=== PATIENT | female | born 1990 | race Caucasian/White ===

== ENCOUNTER 2016-09-25 17:53 | Emergency (ER) | payer SELFPAY ==
[~2016-09-25] VITALS: Ht 165.1 cm; Wt 88.6 kg
[~2016-09-25 17:53] MED LIST: ADDERALL20 MG PO; CEPHALEXIN500 MG PO; CIPRO500 MG OR; CIPROFLOXACN500 MG PO; CLARITIN10 M1 PO; FIORICET PO; HYDROXYZ HCL25 MG PO; LORTAB 1010 MG PO; NO; NO HOME MEDS; ONDANSETRON4 MG OR; PREVACID30 M2 PO; PYRIDIUM200 MG OR; PYRIDIUM200 MG PO; ROBITUSSIN AC10 ML PO; ROBITUSSIN200 MG/10 PO; ULTRAM50 M1 PO; UNKNOWN MEDICATION; VISTARIL 50MG C50 M1 PO; ZITHROMAX250 MG PO; ZOFRAN ODT4 MG PO; ZOFRAN ODT8 MG PO; ZOFRAN4 M1 OR; [UNRECOGNIZED DRUG - REMARK]; [UNRECOGNIZED DRUG - REMARK]
[2016-09-25 18:29] VITALS: BP 128/82
== END 2016-09-25 19:53 | disposition left against medical advice (07) | DRG 951 ==
LOC: ED 17:53 → LWOBS 19:53 → ED 19:53
DX: Z91.19 Patient's noncompliance with other medical treatment and regimen (principal)

== ENCOUNTER 2016-10-09 01:21 | Emergency (ER) | payer SELFPAY ==
[~2016-10-09] VITALS: Ht 165.1 cm; Wt 88.4 kg
[2016-10-09 02:45] VITALS: BP 129/82
[2016-10-10] MEDS ORDERED: METRONIDAZOL500 MG PO (07:36)
[2016-10-10] MEDS ORDERED: CIPROFLOXACN500 MG PO (07:36)
== END 2016-10-09 02:45 | disposition left against medical advice (07) | DRG 880 ==
LOC: ED 01:21
DX: F41.9 Anxiety disorder, unspecified (principal); Z91.19 Patient's noncompliance with other medical treatment and regimen; F31.9 Bipolar disorder, unspecified; F90.9 Attention-deficit hyperactivity disorder, unspecified type; K21.9 Gastro-esophageal reflux disease without esophagitis; F17.210 Nicotine dependence, cigarettes, uncomplicated
CPT/HCPCS: J2060

== ENCOUNTER 2016-10-10 03:03 | Emergency (ER) | payer SELFPAY ==
[~2016-10-10] VITALS: Ht 165.1 cm; Wt 85.5 kg
[2016-10-10 05:57] LABS: HEMATOCRIT 45.2 % (37.0-47.0); HEMOGLOBIN 15.4 g/dl (12.0-16.0); IMMATURE GRANULOCYTES 1.7 % (0.0-1.0); MEAN CELL VOLUME 92.4 fL CALC (80.0-100.0); MEAN CORPUSCULAR HGB 31.5 pG CALC (26.0-32.0); MEAN CORPUSCULAR HGB CONC 34.1 g/L CALC (32.0-36.0); NEUT# 13.82 thou/uL (2.00-7.15); RED BLOOD COUNT 4.89 mill/uL (4.20-5.60); RED CELL DISTRI WIDTH 12.7 % (11.5-15.5)
[2016-10-10 06:05] LABS: ALBUMIN 5.6 g/dL (3.2-5.0); ALKALINE PHOSPHATASE 87 u/l (38-126); AMYLASE 61 u/l (30-110); ANION GAP 22 (6-22 (CALC)); BILIRUBIN, TOTAL 1.2 mg/dL (0.0-1.4); BUN 14 mg/dL (7-17); BUN/CREATININE RATIO 17 (12-20 (CALC)); CALCIUM 11.1 mg/dL (8.4-10.2); CARBON DIOXIDE 20 mmol/l (22-30); CHLORIDE 105 mmol/l (95-108); CREATININE 0.8 mg/dL (0.5-1.0); GFR > 60 ML/MIN (>=60 (CALC)); GFR FOR AFR.AMER. > 60 ML/MIN (>=60 (CALC)); GLUCOSE 101 mg/dL (65-105); LIPASE 62 u/l (23-300); SGOT/AST 22 u/l (14-36); SGPT/ALT 29 u/l (9-52); SODIUM 143 mmol/l (137-146); TOTAL PROTEIN 9.4 g/dL (6.3-8.2)
[2016-10-10] MEDS ORDERED: METRONIDAZOL500 MG PO (07:36)
[2016-10-10] MEDS ORDERED: CIPROFLOXACN500 MG PO (07:36)
[2016-10-10 07:50] VITALS: BP 115/68
== END 2016-10-10 08:07 | disposition home or self-care (01) | DRG 392 ==
LOC: ED 03:03
PROVIDERS: Emergency Medicine
DX: R19.7 Diarrhea, unspecified (principal); F31.9 Bipolar disorder, unspecified; R11.10 Vomiting, unspecified; F90.9 Attention-deficit hyperactivity disorder, unspecified type; F41.9 Anxiety disorder, unspecified; K21.9 Gastro-esophageal reflux disease without esophagitis; F17.210 Nicotine dependence, cigarettes, uncomplicated
CPT/HCPCS: J2060; S0164

== ENCOUNTER 2016-12-17 16:57 | Emergency (ER) | payer SELFPAY ==
[~2016-12-17] VITALS: Ht 165.1 cm; Wt 86.4 kg
[~2016-12-17 16:57] MED LIST changes: +METRONIDAZOL500 MG PO
[2016-12-17 17:46] LABS: URINE BILIRUBIN - DIPSTICK NEGATIVE (NEGATIVE); URINE BLOOD DIPSTICK LARGE (NEGATIVE); URINE CLARITY CLEAR; URINE COLOR YELLOW; URINE GLUCOSE - DIPSTICK NEGATIVE (NEGATIVE); URINE KETONE NEGATIVE (NEGATIVE); URINE LEUK ESTERASE TRACE (NEGATIVE); URINE NITRITE - DIPSTICK NEGATIVE (Negative); URINE PROTEIN - DIPSTICK 30 mg/dL (NEG-TRACE); URINE SPECIFIC GRAVITY 1.015; URINE UROBILINOGEN - DIPSTICK 0.2 E.U./dL (0.2)
[2016-12-17 17:47] LABS: HEMATOCRIT 42.8 % (37.0-47.0); HEMOGLOBIN 14.4 g/dl (12.0-16.0); IMMATURE GRANULOCYTES 0.3 % (0.0-1.0); MEAN CELL VOLUME 94.5 fL CALC (80.0-100.0); MEAN CORPUSCULAR HGB 31.8 pG CALC (26.0-32.0); MEAN CORPUSCULAR HGB CONC 33.6 g/L CALC (32.0-36.0); NEUT# 10.69 thou/uL (2.00-7.15); RED BLOOD COUNT 4.53 mill/uL (4.20-5.60); RED CELL DISTRI WIDTH 12.9 % (11.5-15.5)
[2016-12-17 18:03] LABS: URINE MUCUS MODERATE hpf (NONE-FEW); URINE RBC TNTC RBC/hpf (0-5); URINE SQUAMOUS EPITHELIAL CELL FEW EPI/hpf (0-FEW)
[2016-12-17 18:04] LABS: ALBUMIN 4.5 g/dL (3.2-5.0); ALKALINE PHOSPHATASE 83 u/l (38-126); ANION GAP 17 (6-22 (CALC)); BILIRUBIN, TOTAL 1.1 mg/dL (0.0-1.4); BUN 10 mg/dL (7-17); BUN/CREATININE RATIO 17 (12-20 (CALC)); CALCIUM 9.6 mg/dL (8.4-10.2); CARBON DIOXIDE 17 mmol/l (22-30); CHLORIDE 113 mmol/l (95-108); CREATININE 0.6 mg/dL (0.5-1.0); GFR > 60 ML/MIN (>=60 (CALC)); GFR FOR AFR.AMER. > 60 ML/MIN (>=60 (CALC)); GLUCOSE 98 mg/dL (65-105); LIPASE 218 u/l (23-300); POTASSIUM 4.3 mmol/l (3.5-5.1); SGOT/AST 18 u/l (14-36); SGPT/ALT 23 u/l (9-52); SODIUM 143 mmol/l (137-146); TOTAL PROTEIN 7.4 g/dL (6.3-8.2)
[2016-12-17 19:00] VITALS: BP 124/80
== END 2016-12-17 19:01 | disposition left against medical advice (07) | DRG 392 ==
LOC: ED 16:57
PROVIDERS: Family Medicine
DX: R10.84 Generalized abdominal pain (principal); R11.10 Vomiting, unspecified; R19.7 Diarrhea, unspecified; Z91.19 Patient's noncompliance with other medical treatment and regimen

== ENCOUNTER 2017-04-21 03:18 | Emergency (ER) | payer SELFPAY ==
[~2017-04-21] VITALS: Ht 165.1 cm; Wt 77.2 kg
[2017-04-21] MEDS ORDERED: PSYCH MED (03:34)
[2017-04-21 04:17] LABS: BARBITURATES NEGATIVE (NEGATIVE); COCAINE NEGATIVE (NEGATIVE); METHADONE NEGATIVE (NEGATIVE); OXCYCODONE NEGATIVE (NEGATIVE); TETRAHYDROCANNABIONOL POSITIVE (NEGATIVE); TRICYLIC ANTIDEPRESSANTS NEGATIVE (NEGATIVE)
[2017-04-21 05:09] VITALS: BP 136/84
== END 2017-04-21 05:50 | disposition left against medical advice (07) | DRG 552 ==
LOC: ED 03:18
PROVIDERS: Emergency Medicine
DX: M54.2 Cervicalgia (principal); F17.210 Nicotine dependence, cigarettes, uncomplicated; F31.9 Bipolar disorder, unspecified; F41.9 Anxiety disorder, unspecified; Z91.19 Patient's noncompliance with other medical treatment and regimen

== ENCOUNTER 2018-01-31 12:24 | Emergency (ER) | payer SELFPAY ==
[~2018-01-31] VITALS: Ht 165.1 cm; Wt 75.2 kg
[~2018-01-31 12:24] MED LIST changes: +PSYCH MED
[2018-01-31] MEDS ORDERED: SERTRALINE50 MG PO (12:46)
[2018-01-31] MEDS ORDERED: HYDROXYZ HCL25 MG PO (12:46)
[2018-01-31 13:20] LABS: HEMATOCRIT 40.7 % (37.0-47.0); HEMOGLOBIN 13.2 g/dl (12.0-16.0); IMMATURE GRANULOCYTES 0.4 % (0.0-5.0); MEAN CELL VOLUME 95.3 fL CALC (80.0-100.0); MEAN CORPUSCULAR HGB 30.9 pG CALC (26.0-32.0); MEAN CORPUSCULAR HGB CONC 32.4 g/L CALC (32.0-36.0); NEUT# 4.77 thou/uL (2.00-7.15); RED BLOOD COUNT 4.27 mill/uL (4.20-5.60); RED CELL DISTRI WIDTH 12.5 % (11.5-15.5)
[2018-01-31 13:25] LABS: URINE BILIRUBIN - DIPSTICK NEGATIVE (NEGATIVE); URINE BLOOD DIPSTICK NEGATIVE (NEGATIVE); URINE COLOR YELLOW; URINE GLUCOSE - DIPSTICK NEGATIVE (NEGATIVE); URINE KETONE NEGATIVE (NEGATIVE); URINE PH 6.5 (4.5-8.0); URINE PROTEIN - DIPSTICK NEGATIVE (NEG-TRACE); URINE SPECIFIC GRAVITY 1.025; URINE UROBILINOGEN - DIPSTICK 0.2 E.U./dL (0.2)
[2018-01-31 13:26] LABS: URINE LEUK ESTERASE SMALL (NEGATIVE); URINE NITRITE - DIPSTICK POSITIVE (Negative)
[2018-01-31 13:28] LABS: COCAINE NEGATIVE (NEGATIVE)
[2018-01-31 13:29] LABS: BARBITURATES NEGATIVE (NEGATIVE); METHADONE NEGATIVE (NEGATIVE); OXCYCODONE NEGATIVE (NEGATIVE); TETRAHYDROCANNABIONOL POSITIVE (NEGATIVE); TRICYLIC ANTIDEPRESSANTS NEGATIVE (NEGATIVE)
[2018-01-31 13:32] LABS: URINE BACTERIA MANY hpf; URINE SQUAMOUS EPITHELIAL CELL FEW EPI/hpf (0-FEW)
[2018-01-31 13:33] LABS: ALBUMIN 4.2 g/dL (3.2-5.0); ALKALINE PHOSPHATASE 81 u/l (38-126); ANION GAP 14 (6-22 (CALC)); BILIRUBIN, TOTAL 0.2 mg/dL (0.0-1.4); BUN 10 mg/dL (7-17); BUN/CREATININE RATIO 15 (12-20 (CALC)); CARBON DIOXIDE 25 mmol/l (22-30); CHLORIDE 104 mmol/l (95-108); CREATININE 0.7 mg/dL (0.5-1.0); GFR > 60 ML/MIN (>=60 (CALC)); GFR FOR AFR.AMER. > 60 ML/MIN (>=60 (CALC)); POTASSIUM 3.7 mmol/l (3.5-5.1); SGOT/AST 15 u/l (14-36); SODIUM 139 mmol/l (137-146); TOTAL PROTEIN 7.2 g/dL (6.3-8.2)
[2018-01-31] MEDS ORDERED: KEFLEX500 M1 PO (13:49)
[2018-01-31] MEDS ORDERED: ONDANSETRON4 MG PO (13:49)
[2018-01-31 13:55] VITALS: BP 121/60
== END 2018-01-31 13:55 | disposition home or self-care (01) | DRG 833 ==
LOC: ED 12:24
PROVIDERS: Emergency Medicine
DX: O23.40 Unspecified infection of urinary tract in pregnancy, unspecified trimester (principal); O99.320 Drug use complicating pregnancy, unspecified trimester; F19.90 Other psychoactive substance use, unspecified, uncomplicated; O99.340 Other mental disorders complicating pregnancy, unspecified trimester; F31.9 Bipolar disorder, unspecified; O99.330 Smoking (tobacco) complicating pregnancy, unspecified trimester; F17.210 Nicotine dependence, cigarettes, uncomplicated; B96.20 Unspecified Escherichia coli [E. coli] as the cause of diseases classified elsewhere; Z3A.00 Weeks of gestation of pregnancy not specified

== ENCOUNTER 2019-03-30 09:29 | Emergency (ER) | payer OTHER ==
[~2019-03-30 09:29] MED LIST changes: +KEFLEX500 M1 PO; +ONDANSETRON4 MG PO; +SERTRALINE50 MG PO
[2019-03-30] MEDS ORDERED: AMOXICILLIN500 M2 PO (10:28)
[2019-03-30 10:55] VITALS: BP 106/57
== END 2019-03-30 10:55 | disposition home or self-care (01) ==
LOC: ED 09:29
DX: J02.0 Streptococcal pharyngitis (principal); F17.210 Nicotine dependence, cigarettes, uncomplicated

== ENCOUNTER 2019-07-02 09:05 | Emergency (ER) | payer OTHER ==
[~2019-07-02 09:05] MED LIST changes: +AMOXICILLIN500 M2 PO
[2019-07-02] MEDS ORDERED: PENICILLN VK500 M1 PO (09:48)
[2019-07-02 09:55] VITALS: BP 118/61
== END 2019-07-02 09:55 | disposition home or self-care (01) ==
LOC: ED 09:05
DX: K03.81 Cracked tooth (principal); F17.210 Nicotine dependence, cigarettes, uncomplicated

== ENCOUNTER 2019-09-16 18:20 | Emergency (ER) | payer OTHER ==
[~2019-09-16] VITALS: Ht 165.1 cm; Wt 81.8 kg
[~2019-09-16 18:20] MED LIST changes: +PENICILLN VK500 M1 PO
[2019-09-16] MEDS ORDERED: [UNRECOGNIZED DRUG - OTHER] PO (19:14)
[2019-09-16 19:18] VITALS: BP 127/60
== END 2019-09-16 19:23 | disposition home or self-care (01) ==
LOC: ED 18:20
DX: O21.9 Vomiting of pregnancy, unspecified (principal); O99.330 Smoking (tobacco) complicating pregnancy, unspecified trimester; F17.210 Nicotine dependence, cigarettes, uncomplicated; O99.340 Other mental disorders complicating pregnancy, unspecified trimester; F41.9 Anxiety disorder, unspecified; F31.9 Bipolar disorder, unspecified; Z3A.00 Weeks of gestation of pregnancy not specified

== ENCOUNTER 2019-10-26 03:00 | Emergency (ER) | payer OTHER ==
[~2019-10-26] VITALS: Ht 165.1 cm; Wt 86.3 kg
[~2019-10-26 03:00] MED LIST changes: +[UNRECOGNIZED DRUG - OTHER] PO
[2019-10-26 03:46] LABS: HEMATOCRIT 36.1 % (37.0-47.0); HEMOGLOBIN 11.8 g/dl (12.0-16.0); IMMATURE GRANULOCYTES 0.5 % (0.0-5.0); MEAN CELL VOLUME 90.9 fL CALC (80.0-100.0); MEAN CORPUSCULAR HGB 29.7 pG CALC (26.0-32.0); MEAN CORPUSCULAR HGB CONC 32.7 g/dL CAL (32.0-36.0); NEUT# 12.57 thou/uL (2.00-7.15); RED BLOOD COUNT 3.97 mill/uL (4.20-5.60); RED CELL DISTRI WIDTH 13.2 % (11.5-15.5)
[2019-10-26 04:01] LABS: ALBUMIN 4.1 g/dL (3.2-5.0); ALKALINE PHOSPHATASE 72 u/l (38-126); ANION GAP 13 (6-22 (CALC)); BILIRUBIN, TOTAL 0.2 mg/dL (0.0-1.4); BUN 7 mg/dL (7-17); BUN/CREATININE RATIO 13 (12-20 (CALC)); CARBON DIOXIDE 21 mmol/l (22-30); CHLORIDE 104 mmol/l (95-108); CREATININE 0.5 mg/dL (0.5-1.0); GFR > 60 ML/MIN (>=60 (CALC)); GFR FOR AFR.AMER. > 60 ML/MIN (>=60 (CALC)); POTASSIUM 4.1 mmol/l (3.5-5.1); SGOT/AST 14 u/l (14-36); SODIUM 135 mmol/l (137-146); TOTAL PROTEIN 6.7 g/dL (6.3-8.2)
[2019-10-26] MEDS ORDERED: PROGESTERONE200 MG PO (04:06)
[2019-10-26] MEDS ORDERED: CEPHALEXIN500 MG PO (04:07)
[2019-10-26 04:44] LABS: BETA-HCG, QUANT(RESULT NUMBER) 130240 mIU/mL
[2019-10-26] MEDS ORDERED: NAPROXEN500 MG PO (05:35)
[2019-10-26] MEDS ORDERED: TRAMADOL HCL50 MG PO (05:35)
[2019-10-26 05:46] VITALS: BP 96/44
== END 2019-10-26 05:57 | disposition home or self-care (01) ==
LOC: ED 03:00
PROVIDERS: Family Medicine
DX: O03.4 Incomplete spontaneous abortion without complication (principal); F17.200 Nicotine dependence, unspecified, uncomplicated

== ENCOUNTER 2020-03-29 10:47 | Emergency (ER) | payer OTHER ==
[~2020-03-29] VITALS: Ht 165.1 cm; Wt 105.0 kg
[~2020-03-29 10:47] MED LIST changes: +NAPROXEN500 MG PO; +PROGESTERONE200 MG PO; +TRAMADOL HCL50 MG PO
[2020-03-29 11:50] LABS: HEMOGLOBIN 12.4 g/dl (12.0-16.0); IMMATURE GRANULOCYTES 0.4 % (0.0-5.0); MEAN CELL VOLUME 92.9 fL CALC (80.0-100.0); MEAN CORPUSCULAR HGB 29.5 pG CALC (26.0-32.0); MEAN CORPUSCULAR HGB CONC 31.8 g/dL CAL (32.0-36.0); NEUT# 9.65 thou/uL (2.00-7.15); RED BLOOD COUNT 4.2 mill/uL (4.20-5.60); RED CELL DISTRI WIDTH 14.9 % (11.5-15.5)
[2020-03-29 11:53] LABS: URINE BILIRUBIN - DIPSTICK NEGATIVE (NEGATIVE); URINE BLOOD DIPSTICK NEGATIVE (NEGATIVE); URINE COLOR YELLOW; URINE GLUCOSE - DIPSTICK NEGATIVE (NEGATIVE); URINE KETONE NEGATIVE (NEGATIVE); URINE LEUK ESTERASE NEGATIVE (NEGATIVE); URINE NITRITE - DIPSTICK NEGATIVE (Negative); URINE PH 7.5 (4.5-8.0); URINE PROTEIN - DIPSTICK NEGATIVE (NEG-TRACE); URINE SPECIFIC GRAVITY 1.025; URINE UROBILINOGEN - DIPSTICK 0.2 E.U./dL (0.2)
[2020-03-29 11:55] LABS: ALBUMIN 3.9 g/dL (3.2-5.0); ALKALINE PHOSPHATASE 57 u/l (38-126); AMYLASE 63 u/l (30-110); ANION GAP 10 (6-22 (CALC)); BUN 11 mg/dL (7-17); BUN/CREATININE RATIO 17 (12-20 (CALC)); CARBON DIOXIDE 21 mmol/l (22-30); CHLORIDE 107 mmol/l (95-108); CREATININE 0.6 mg/dL (0.5-1.0); GFR > 60 ML/MIN (>=60 (CALC)); GFR FOR AFR.AMER. > 60 ML/MIN (>=60 (CALC)); LIPASE 64 u/l (23-300); SGOT/AST 18 u/l (14-36); SODIUM 134 mmol/l (137-146); TOTAL PROTEIN 6.8 g/dL (6.3-8.2)
[2020-03-29 12:06] LABS: BILIRUBIN, TOTAL 0.6 mg/dL (0.0-1.4)
[2020-03-29] MEDS ORDERED: REGLAN10 MG PO (12:28)
[2020-03-29 12:42] VITALS: BP 127/69
== END 2020-03-29 12:48 | disposition home or self-care (01) ==
LOC: ED 10:47
PROVIDERS: Student in an Organized Health Care Education/Training Program
DX: O26.899 Other specified pregnancy related conditions, unspecified trimester (principal); R10.11 Right upper quadrant pain; R10.13 Epigastric pain; R11.2 Nausea with vomiting, unspecified; R19.7 Diarrhea, unspecified; O99.330 Smoking (tobacco) complicating pregnancy, unspecified trimester; F17.210 Nicotine dependence, cigarettes, uncomplicated; O99.340 Other mental disorders complicating pregnancy, unspecified trimester; F41.9 Anxiety disorder, unspecified; F31.9 Bipolar disorder, unspecified; Z3A.00 Weeks of gestation of pregnancy not specified

== ENCOUNTER 2020-09-23 14:06 | Emergency (ER) | payer OTHER ==
[~2020-09-23 14:06] MED LIST changes: +REGLAN10 MG PO
[2020-09-23 14:35] VITALS: BP 103/59
== END 2020-09-23 15:52 | disposition home or self-care (01) ==
LOC: ED 14:06
DX: O98.513 Other viral diseases complicating pregnancy, third trimester (principal); U07.1 COVID-19; O99.343 Other mental disorders complicating pregnancy, third trimester; F31.9 Bipolar disorder, unspecified; F41.9 Anxiety disorder, unspecified; O99.333 Smoking (tobacco) complicating pregnancy, third trimester; F17.210 Nicotine dependence, cigarettes, uncomplicated; Z3A.30 30 weeks gestation of pregnancy

== ENCOUNTER 2020-12-16 12:46 | Emergency (ER) | payer OTHER ==
[~2020-12-16] VITALS: Ht 165.1 cm; Wt 90.0 kg
[2020-12-16 13:01] VITALS: BP 115/72
[2020-12-16 13:36] LABS: HEMOGLOBIN 11.9 g/dl (12.0-16.0); IMMATURE GRANULOCYTES 0.3 % (0.0-5.0); MEAN CELL VOLUME 99.2 fL CALC (80.0-100.0); MEAN CORPUSCULAR HGB 31.1 pG CALC (26.0-32.0); MEAN CORPUSCULAR HGB CONC 31.3 g/dL CAL (32.0-36.0); NEUT# 7.3 thou/uL (2.00-7.15); RED BLOOD COUNT 3.83 mill/uL (4.20-5.60); RED CELL DISTRI WIDTH 12.7 % (11.5-15.5)
[2020-12-16 13:41] LABS: URINE BLOOD DIPSTICK MODERATE (NEGATIVE); URINE COLOR YELLOW; URINE GLUCOSE - DIPSTICK NEGATIVE (NEGATIVE); URINE KETONE TRACE mg/dL (NEGATIVE); URINE PROTEIN - DIPSTICK NEGATIVE (NEG-TRACE); URINE UROBILINOGEN - DIPSTICK 0.2 E.U./dL (0.2)
[2020-12-16 13:43] LABS: URINE BILIRUBIN - DIPSTICK NEGATIVE (NEGATIVE); URINE LEUK ESTERASE SMALL (NEGATIVE); URINE NITRITE - DIPSTICK NEGATIVE (Negative)
[2020-12-16 13:45] LABS: URINE SQUAMOUS EPITHELIAL CELL MANY EPI/hpf (0-FEW)
[2020-12-16 13:46] LABS: URINE BACTERIA MODERATE hpf; URINE MUCUS FEW hpf (NONE-FEW); URINE RBC 0-2 RBC/hpf (0-5)
[2020-12-16 13:47] LABS: ALBUMIN 3.9 g/dL (3.2-5.0); ANION GAP 11 (6-22 (CALC)); BILIRUBIN, TOTAL 0.7 mg/dL (0.0-1.4); BUN 6 mg/dL (7-17); BUN/CREATININE RATIO 8 (12-20 (CALC)); CARBON DIOXIDE 25 mmol/l (22-30); CHLORIDE 105 mmol/l (95-108); CREATININE 0.8 mg/dL (0.5-1.0); GFR > 60 ML/MIN (>=60 (CALC)); GFR FOR AFR.AMER. > 60 ML/MIN (>=60 (CALC)); POTASSIUM 3.4 mmol/l (3.5-5.1); SGOT/AST 14 u/l (14-36); SODIUM 137 mmol/l (137-146); TOTAL PROTEIN 7.1 g/dL (6.3-8.2)
[2020-12-16 13:56] LABS: ALKALINE PHOSPHATASE 87 u/l (38-126)
[2020-12-16] MEDS ORDERED: KEFLEX500 MG PO (15:27)
== END 2020-12-16 15:27 | disposition home or self-care (01) ==
LOC: ED 12:46
DX: B34.9 Viral infection, unspecified (principal); N39.0 Urinary tract infection, site not specified; F31.9 Bipolar disorder, unspecified; F17.210 Nicotine dependence, cigarettes, uncomplicated; B95.7 Other staphylococcus as the cause of diseases classified elsewhere; Z20.822 Contact with and (suspected) exposure to COVID-19

== ENCOUNTER 2021-03-16 15:47 | Emergency (ER) | payer OTHER ==
[~2021-03-16] VITALS: Ht 165.1 cm; Wt 100.0 kg
[~2021-03-16 15:47] MED LIST changes: +KEFLEX500 MG PO
[2021-03-16] MEDS ORDERED: MEDDOSEPAK PO (19:02)
[2021-03-16] MEDS ORDERED: BENADRYL ALLERG25 MG PO (19:02)
[2021-03-16] MEDS ORDERED: PEPCID20 MG PO (19:02)
[2021-03-16 19:04] VITALS: BP 104/55
== END 2021-03-16 19:13 | disposition home or self-care (01) ==
LOC: ED 15:47
DX: T78.40XA Allergy, unspecified, initial encounter (principal); F31.9 Bipolar disorder, unspecified; F41.9 Anxiety disorder, unspecified; F17.200 Nicotine dependence, unspecified, uncomplicated; X58.XXXA Exposure to other specified factors, initial encounter

== ENCOUNTER 2021-03-18 06:36 | Emergency (ER) | payer OTHER ==
[~2021-03-18] VITALS: Ht 165.1 cm; Wt 96.6 kg
[~2021-03-18 06:36] MED LIST changes: +BENADRYL ALLERG25 MG PO; +MEDDOSEPAK PO; +PEPCID20 MG PO
[2021-03-18] MEDS ORDERED: EPIPEN 2-P0.3 MG/0.3 IM (09:44)
[2021-03-18] MEDS ORDERED: ALL DAY10 MG PO (09:44)
[2021-03-18 10:00] VITALS: BP 123/70
== END 2021-03-18 10:01 | disposition home or self-care (01) ==
LOC: ED 06:36
DX: T78.40XA Allergy, unspecified, initial encounter (principal); E66.9 Obesity, unspecified; F31.9 Bipolar disorder, unspecified; F41.9 Anxiety disorder, unspecified; F17.200 Nicotine dependence, unspecified, uncomplicated; X58.XXXA Exposure to other specified factors, initial encounter

== ENCOUNTER 2021-08-29 18:23 | Emergency (ER) | payer OTHER ==
[~2021-08-29] VITALS: Ht 165.1 cm; Wt 93.0 kg
[~2021-08-29 18:23] MED LIST changes: +ALL DAY10 MG PO; +EPIPEN 2-P0.3 MG/0.3 IM
[2021-08-29 18:29] VITALS: BP 119/73
[2021-08-29 18:45] VITALS: BP 110/70
[2021-08-29 18:52] LABS: URINE BILIRUBIN - DIPSTICK NEGATIVE (NEGATIVE); URINE BLOOD DIPSTICK SMALL (NEGATIVE); URINE COLOR YELLOW; URINE GLUCOSE - DIPSTICK NEGATIVE (NEGATIVE); URINE KETONE 15 mg/dL (NEGATIVE); URINE PH 5.5 (4.5-8.0); URINE PROTEIN - DIPSTICK NEGATIVE (NEG-TRACE); URINE UROBILINOGEN - DIPSTICK 0.2 E.U./dL (0.2)
[2021-08-29 18:59] LABS: URINE LEUK ESTERASE MODERATE (NEGATIVE); URINE NITRITE - DIPSTICK NEGATIVE (Negative)
[2021-08-29 19:00] VITALS: BP 99/61
[2021-08-29 19:01] LABS: URINE SQUAMOUS EPITHELIAL CELL MODERATE EPI/hpf (0-FEW); URINE TRICHOMONAS FEW hpf
[2021-08-29] MEDS ORDERED: BACTRIM DS1 TAB PO (19:05)
[2021-08-29 19:15] VITALS: BP 111/73
[2021-08-29 19:28] VITALS: BP 122/66
== END 2021-08-29 19:30 | disposition home or self-care (01) ==
LOC: ED 18:23
PROVIDERS: Family Medicine
DX: N39.0 Urinary tract infection, site not specified (principal); F31.9 Bipolar disorder, unspecified; F41.9 Anxiety disorder, unspecified; F17.210 Nicotine dependence, cigarettes, uncomplicated; B96.20 Unspecified Escherichia coli [E. coli] as the cause of diseases classified elsewhere

== ENCOUNTER 2021-09-21 10:02 | Emergency (ER) | payer OTHER ==
[~2021-09-21] VITALS: Ht 165.1 cm; Wt 90.9 kg
[~2021-09-21 10:02] MED LIST changes: +BACTRIM DS1 TAB PO
[2021-09-21 10:32] VITALS: BP 95/75
[2021-09-21 10:39] VITALS: BP 128/83
[2021-09-21 11:00] VITALS: BP 117/70
[2021-09-21 12:12] VITALS: BP 117/70
== END 2021-09-21 12:12 | disposition left against medical advice (07) ==
LOC: ED 10:02
DX: Z53.21 Procedure and treatment not carried out due to patient leaving prior to being seen by health care provider (principal)

== ENCOUNTER 2022-01-26 13:13 | Emergency (ER) | payer OTHER ==
[~2022-01-26] VITALS: Ht 165.1 cm; Wt 91.0 kg
[2022-01-26 14:25] VITALS: BP 109/65
[2022-01-26 14:31] VITALS: BP 115/69
[2022-01-26 14:46] VITALS: BP 107/64
[2022-01-26] MEDS ORDERED: AMOX/K CLAV875 M1 PO ×2 (14:58→15:01)
[2022-01-26 15:10] VITALS: BP 107/64
== END 2022-01-26 15:10 | disposition home or self-care (01) ==
LOC: ED 13:13
DX: H66.91 Otitis media, unspecified, right ear (principal); K08.89 Other specified disorders of teeth and supporting structures; F41.9 Anxiety disorder, unspecified; F31.9 Bipolar disorder, unspecified; F17.200 Nicotine dependence, unspecified, uncomplicated

== ENCOUNTER 2022-01-30 18:32 | Emergency (ER) | payer OTHER ==
[~2022-01-30] VITALS: Ht 165.1 cm; Wt 85.0 kg
[~2022-01-30 18:32] MED LIST changes: +AMOX/K CLAV875 M1 PO
[2022-01-30 18:40] VITALS: BP 120/99
[2022-01-30] MEDS ORDERED: NEURONTIN300 MG PO (18:46)
[2022-01-30] MEDS ORDERED: NAPROXEN375 MG PO (18:46)
[2022-01-30] MEDS ORDERED: LORTAB5 PO (18:46)
[2022-01-30 18:48] VITALS: BP 120/99
== END 2022-01-30 18:55 | disposition home or self-care (01) ==
LOC: ED 18:32
DX: K02.9 Dental caries, unspecified (principal); K04.7 Periapical abscess without sinus; M84.68XA Pathological fracture in other disease, other site, initial encounter for fracture; F31.9 Bipolar disorder, unspecified; F41.9 Anxiety disorder, unspecified; F17.200 Nicotine dependence, unspecified, uncomplicated

== ENCOUNTER 2022-06-21 16:28 | Emergency (ER) | payer OTHER ==
[~2022-06-21] VITALS: Ht 165.1 cm; Wt 90.7 kg
[~2022-06-21 16:28] MED LIST changes: +LORTAB5 PO; +NAPROXEN375 MG PO; +NEURONTIN300 MG PO
[2022-06-21 17:00] VITALS: BP 113/56
[2022-06-21 17:32] VITALS: BP 99/53
[2022-06-21 17:45] VITALS: BP 107/67
[2022-06-21 18:00] VITALS: BP 114/64
[2022-06-21 18:15] VITALS: BP 103/63
[2022-06-21] MEDS ORDERED: AMOX/K CLAV875 M1 PO (18:32)
[2022-06-21] MEDS ORDERED: ONDANSETRON4 MG PO (18:32)
[2022-06-21] MEDS ORDERED: ZYRTEC10 MG PO (18:32)
[2022-06-21 18:43] VITALS: BP 103/63
== END 2022-06-21 18:47 | disposition home or self-care (01) ==
LOC: ED 16:28
DX: J32.9 Chronic sinusitis, unspecified (principal); F31.9 Bipolar disorder, unspecified; F41.9 Anxiety disorder, unspecified; F17.200 Nicotine dependence, unspecified, uncomplicated; Z20.822 Contact with and (suspected) exposure to COVID-19

== ENCOUNTER 2022-08-19 16:47 | Emergency (ER) | payer SELFPAY ==
[~2022-08-19] VITALS: Ht 165.1 cm; Wt 86.0 kg
[~2022-08-19 16:47] MED LIST changes: +ZYRTEC10 MG PO
[2022-08-19 17:17] VITALS: BP 138/93
[2022-08-19 17:31] VITALS: BP 104/62
[2022-08-19 17:44] LABS: BASO% 1.2 % (0-3); HEMATOCRIT 42.5 % (37.0-47.0); HEMOGLOBIN 13.4 g/dl (12.0-16.0); IMMATURE GRANULOCYTES 0.2 % (0.0-5.0); LYMPH% 24.4 % (15-41); MEAN CELL VOLUME 93.2 fL CALC (80.0-100.0); MEAN CORPUSCULAR HGB 29.4 pG CALC (26.0-32.0); MEAN CORPUSCULAR HGB CONC 31.5 g/dL CAL (32.0-36.0); MONO% 5.6 % (2-13); NEUT# 5.82 thou/uL (2.00-7.15); NEUT% 63.6 % (42-76); RED BLOOD COUNT 4.56 mill/uL (4.20-5.60); RED CELL DISTRI WIDTH 12.9 % (11.5-15.5)
[2022-08-19 17:46] VITALS: BP 103/75
[2022-08-19 17:55] LABS: ALBUMIN 4.6 g/dL (3.2-5.0); ALKALINE PHOSPHATASE 69 u/l (38-126); ANION GAP 14 (6-22 (CALC)); BUN 9 mg/dL (7-17); BUN/CREATININE RATIO 13 (12-20 (CALC)); CARBON DIOXIDE 22 mmol/l (22-30); CHLORIDE 107 mmol/l (95-108); CREATININE 0.7 mg/dL (0.5-1.0); GFR FOR AFR.AMER. > 60 ML/MIN (>=60 (CALC)); GFR OTHER RACES > 60 ML/MIN (>=60 (CALC)); SGOT/AST 17 u/l (14-36); SODIUM 140 mmol/l (137-146); TOTAL PROTEIN 7.6 g/dL (6.3-8.2)
[2022-08-19 17:58] LABS: BILIRUBIN, TOTAL 0.3 mg/dL (0.02-1.3)
[2022-08-19 18:26] LABS: URINE BILIRUBIN - DIPSTICK NEGATIVE (NEGATIVE); URINE BLOOD DIPSTICK NEGATIVE (NEGATIVE); URINE COLOR YELLOW; URINE GLUCOSE - DIPSTICK NEGATIVE (NEGATIVE); URINE KETONE 15 mg/dL (NEGATIVE); URINE LEUK ESTERASE NEGATIVE (NEGATIVE); URINE PROTEIN - DIPSTICK NEGATIVE (NEG-TRACE); URINE SPECIFIC GRAVITY 1.025; URINE UROBILINOGEN - DIPSTICK 0.2 E.U./dL (0.2)
[2022-08-19 18:27] LABS: URINE NITRITE - DIPSTICK NEGATIVE (Negative)
[2022-08-19] MEDS ORDERED: XANAX0.25 MG PO (19:16)
[2022-08-19 19:45] VITALS: BP 103/75
== END 2022-08-19 19:46 | disposition home or self-care (01) | DRG 880 ==
LOC: ED 16:47
PROVIDERS: Nurse Practitioner
DX: F41.9 Anxiety disorder, unspecified (principal); F31.9 Bipolar disorder, unspecified; F17.200 Nicotine dependence, unspecified, uncomplicated; Z79.899 Other long term (current) drug therapy; Z20.822 Contact with and (suspected) exposure to COVID-19

== ENCOUNTER 2022-10-06 07:13 | Emergency (ER) | payer SELFPAY ==
[~2022-10-06] VITALS: Ht 165.1 cm; Wt 89.0 kg
[2022-10-06] VITALS (7 sets, daily range): BP systolic 99–111; BP diastolic 51–93
[~2022-10-06 07:13] MED LIST changes: +XANAX0.25 MG PO
[2022-10-06] MEDS ORDERED: MEDROL DOSEPAK4 MG PO (09:13)
== END 2022-10-06 09:40 | disposition home or self-care (01) | DRG 866 ==
LOC: ED 07:13
DX: B34.9 Viral infection, unspecified (principal); F31.9 Bipolar disorder, unspecified; F41.9 Anxiety disorder, unspecified; F17.200 Nicotine dependence, unspecified, uncomplicated; Z20.822 Contact with and (suspected) exposure to COVID-19

== ENCOUNTER 2023-03-01 10:51 | Emergency (ER) | payer SELFPAY ==
[2023-03-01] VITALS (12 sets, daily range): BP systolic 98–137; BP diastolic 56–96
[~2023-03-01] VITALS: Ht 165.1 cm; Wt 86.0 kg
[~2023-03-01 10:51] MED LIST changes: +MEDROL DOSEPAK4 MG PO
[2023-03-01 11:39] LABS: URINE BILIRUBIN - DIPSTICK Negative (NEGATIVE); URINE BLOOD DIPSTICK Moderate (NEGATIVE); URINE GLUCOSE - DIPSTICK Negative (NEGATIVE); URINE KETONE Negative (NEGATIVE); URINE NITRITE - DIPSTICK Negative (Negative); URINE PROTEIN - DIPSTICK Negative (NEG-TRACE); URINE UROBILINOGEN - DIPSTICK 0.2 E.U./dL (0.2)
[2023-03-01 11:40] LABS: URINE COLOR Yellow; URINE LEUK ESTERASE Small (NEGATIVE)
[2023-03-01 11:44] LABS: BASO% 0.9 % (0-3); HEMATOCRIT 41.3 % (37.0-47.0); HEMOGLOBIN 13.1 g/dl (12.0-16.0); IMMATURE GRANULOCYTES 0.1 % (0.0-5.0); LYMPH% 24.8 % (15-41); MEAN CELL VOLUME 94.3 fL CALC (80.0-100.0); MEAN CORPUSCULAR HGB 29.9 pG CALC (26.0-32.0); MEAN CORPUSCULAR HGB CONC 31.7 g/dL CAL (32.0-36.0); MONO% 5.7 % (2-13); NEUT# 4.62 thou/uL (2.00-7.15); NEUT% 61.5 % (42-76); RED BLOOD COUNT 4.38 mill/uL (4.20-5.60); RED CELL DISTRI WIDTH 12.7 % (11.5-15.5)
[2023-03-01 12:05] LABS: ALBUMIN 4.3 g/dL (3.2-5.0); ALKALINE PHOSPHATASE 67 u/l (38-126); BILIRUBIN, TOTAL 0.4 mg/dL (0.02-1.3); BUN 11 mg/dL (7-17); BUN/CREATININE RATIO 19 (12-20 (CALC)); CHLORIDE 107 mmol/l (95-108); CREATININE 0.6 mg/dL (0.5-1.0); GFR FOR AFR.AMER. > 60 ML/MIN (>=60 (CALC)); GFR OTHER RACES > 60 ML/MIN (>=60 (CALC)); LIPASE 33 u/l (23-300); POTASSIUM 4.3 mmol/l (3.5-5.1); SGOT/AST 21 u/l (14-36); SODIUM 141 mmol/l (137-146); TOTAL PROTEIN 7.1 g/dL (6.3-8.2)
[2023-03-01 12:12] LABS: ANION GAP 9 (6-22 (CALC)); CARBON DIOXIDE 29 mmol/l (22-30)
[2023-03-01 13:37] LABS: URINE BACTERIA FEW hpf; URINE SQUAMOUS EPITHELIAL CELL MANY EPI/hpf (0-FEW)
[2023-03-01] MEDS ORDERED: ZOFRAN4 MG/TAB PO (13:48)
[2023-03-01] MEDS ORDERED: OMNI-PAC300 MG PO (13:48)
[2023-03-01] MEDS ORDERED: OMEPRAZOLE20 MG PO (13:48)
== END 2023-03-01 14:00 | disposition home or self-care (01) | DRG 392 ==
LOC: ED 10:51
PROVIDERS: Family Medicine
DX: R10.13 Epigastric pain (principal); N39.0 Urinary tract infection, site not specified; B95.1 Streptococcus, group B, as the cause of diseases classified elsewhere; F17.200 Nicotine dependence, unspecified, uncomplicated

== ENCOUNTER 2023-08-13 11:30 | Emergency (ER) | payer SELFPAY ==
[~2023-08-13] VITALS: Ht 165.1 cm; Wt 180.0 kg
[~2023-08-13 11:30] MED LIST changes: +OMEPRAZOLE20 MG PO; +OMNI-PAC300 MG PO; +ZOFRAN4 MG/TAB PO
[2023-08-13] MEDS ORDERED: ORPHENADRINE CITRATE 30 MG/ML AMP IM ONE (12:45)
[2023-08-13] MEDS ORDERED: KETOROLAC TROMETHAMINE 30 MG/ML SDV IM ONE (12:45)
[2023-08-13] MEDS ORDERED: predniSONE 20 MG/TAB PO ONE (12:50)
[2023-08-13] MEDS ORDERED: METHOCARBAMOL500 MG PO (14:40)
[2023-08-13] MEDS ORDERED: NAPROXEN500 MG PO (14:40)
[2023-08-13] MEDS ORDERED: PREDNISONE10 MG PO (14:40)
[2023-08-13 14:54] VITALS: BP 132/57
== END 2023-08-13 14:57 | disposition home or self-care (01) | DRG 74 ==
LOC: ED 11:30
DX: M54.12 Radiculopathy, cervical region (principal); F41.9 Anxiety disorder, unspecified; F31.9 Bipolar disorder, unspecified; F17.200 Nicotine dependence, unspecified, uncomplicated

== ENCOUNTER 2024-01-03 09:06 | Emergency (ER) | payer SELFPAY ==
[~2024-01-03] VITALS: Ht 165.1 cm; Wt 77.0 kg
[~2024-01-03 09:06] MED LIST changes: +METHOCARBAMOL500 MG PO; +PREDNISONE10 MG PO
[2024-01-03 09:39] LABS: BASO% 0.8 % (0-3); EOS% 5.2 % (0-8); HEMATOCRIT 42.2 % (37.0-47.0); HEMOGLOBIN 13.4 g/dl (12.0-16.0); IMMATURE GRANULOCYTES 0.2 % (0.0-5.0); LYMPH% 25.1 % (15-41); MEAN CELL VOLUME 98.4 fL CALC (80.0-100.0); MEAN CORPUSCULAR HGB 31.2 pG CALC (26.0-32.0); MEAN CORPUSCULAR HGB CONC 31.8 g/dL CAL (32.0-36.0); MONO% 6.7 % (2-13); NEUT# 4.09 thou/uL (2.00-7.15); RED BLOOD COUNT 4.29 mill/uL (4.20-5.60); RED CELL DISTRI WIDTH 12.7 % (11.5-15.5)
[2024-01-03 09:59] LABS: ALBUMIN 4.3 g/dL (3.2-5.0); BILIRUBIN, TOTAL 0.3 mg/dL (0.02-1.3); CREATININE 0.7 mg/dL (0.5-1.0); POTASSIUM 4.3 mmol/l (3.5-5.1); TOTAL PROTEIN 7.2 g/dL (6.3-8.2)
[2024-01-03] MEDS ORDERED: KETOROLAC TROMETHAMINE 15 MG/ML SDV IV ONE (10:15)
[2024-01-03 11:32] VITALS: BP 112/62
== END 2024-01-03 11:50 | disposition home or self-care (01) | DRG 312 ==
LOC: ED 09:06
PROVIDERS: Family Medicine
DX: R55 Syncope and collapse (principal); M54.2 Cervicalgia; F31.9 Bipolar disorder, unspecified; F41.9 Anxiety disorder, unspecified; Z72.0 Tobacco use

== ENCOUNTER 2024-02-02 10:33 | Emergency (ER) | payer SELFPAY ==
[~2024-02-02] VITALS: Ht 165.1 cm; Wt 74.8 kg
[2024-02-02 11:16] VITALS: BP 112/71
[2024-02-02 11:47] VITALS: BP 140/86
[2024-02-02 11:52] VITALS: BP 136/84
[2024-02-02 12:02] VITALS: BP 129/87
[2024-02-02] MEDS ORDERED: PENicillin V POTASSIUM 500 MG/TAB PO ONE (12:10)
[2024-02-02] MEDS ORDERED: NAPROXEN 250 MG/TAB PO ONE (12:10)
[2024-02-02 12:17] VITALS: BP 140/84
[2024-02-02 12:32] VITALS: BP 142/83
[2024-02-02] MEDS ORDERED: PENICILLN VK500 MG PO (12:46)
== END 2024-02-02 12:55 | disposition home or self-care (01) | DRG 159 ==
LOC: ED 10:33
DX: K04.7 Periapical abscess without sinus (principal); K02.9 Dental caries, unspecified; S02.5XXA Fracture of tooth (traumatic), initial encounter for closed fracture; X58.XXXA Exposure to other specified factors, initial encounter; F41.9 Anxiety disorder, unspecified; F31.9 Bipolar disorder, unspecified; F17.200 Nicotine dependence, unspecified, uncomplicated

== ENCOUNTER 2024-04-02 18:18 | Emergency (ER) | payer SELFPAY ==
[~2024-04-02] VITALS: Ht 165.1 cm; Wt 79.3 kg
[~2024-04-02 18:18] MED LIST changes: +PENICILLN VK500 MG PO
[2024-04-02 18:46] LABS: URINE BILIRUBIN - DIPSTICK Negative (NEGATIVE); URINE BLOOD DIPSTICK Moderate (NEGATIVE); URINE GLUCOSE - DIPSTICK Negative (NEGATIVE); URINE KETONE Trace mg/dL (NEGATIVE); URINE NITRITE - DIPSTICK Negative (Negative); URINE PROTEIN - DIPSTICK 100 mg/dL (NEG-TRACE); URINE SPECIFIC GRAVITY 1.025; URINE UROBILINOGEN - DIPSTICK 0.2 E.U./dL (0.2)
[2024-04-02 18:48] LABS: URINE COLOR Yellow; URINE LEUK ESTERASE Small (NEGATIVE)
[2024-04-02 18:53] LABS: URINE RBC 25-50 RBC/hpf (0-5)
[2024-04-02 18:54] LABS: URINE BACTERIA FEW hpf; URINE MUCUS FEW hpf (NONE-FEW); URINE SQUAMOUS EPITHELIAL CELL FEW EPI/hpf (0-FEW)
[2024-04-02 19:04] VITALS: BP 125/83
[2024-04-02] MEDS ORDERED: LIDOcaine HCl 1% (Local Anesth.) 20 ML VIAL IM STA (19:06)
[2024-04-02] MEDS ORDERED: cefTRIAXone SODIUM 1 GM/VIAL SDV IM ONE (19:10)
[2024-04-02 19:15] VITALS: BP 100/59
[2024-04-02] MEDS ORDERED: KEFLEX500 MG PO (19:23)
[2024-04-02 19:30] VITALS: BP 99/55
[2024-04-02 19:41] VITALS: BP 99/55
[2024-04-05] MEDS ORDERED: MACROBID100 M1 PO (10:39)
== END 2024-04-02 19:47 | disposition home or self-care (01) | DRG 690 ==
LOC: ED 18:18
PROVIDERS: Nurse Practitioner
DX: N39.0 Urinary tract infection, site not specified (principal); F41.9 Anxiety disorder, unspecified; F31.9 Bipolar disorder, unspecified; F17.200 Nicotine dependence, unspecified, uncomplicated; B95.7 Other staphylococcus as the cause of diseases classified elsewhere
CPT/HCPCS: J0696